=== PATIENT | female | born 1950 | race Two or more races ===

== ENCOUNTER 2023-12-10 13:05 | Inpatient (IN) | payer MEDICARE, OTHER ==
[~2023-12-10] VITALS: Ht 149.9 cm; Wt 63.0 kg
[2023-12-10] MEDS ORDERED: D5W/SOD CHL 0.45%/KCL 20MEQ 1,000 ML IV ONE (14:45)
[2023-12-10 15:13] LABS: Basophils # (auto) 0 10 ^3/uL (0-0.2); Basophils % (auto) 0.3 % (0.0-2.0); Eosinophils # (auto) 0 10 ^3/uL (0-0.8); Eosinophils % (auto) 0.1 % (0.0-7.0); Hematocrit 42.5 % (36.0-46.0); Hemoglobin 14.2 g/dL (12.2-16.2); Lymphocytes # (auto) 3.6 10 ^3/uL (0.4-5.4); Lymphocytes % (auto) 32.3 % (10.0-50.0); Mean Corpuscular Hemoglobin 30.3 pg (28.0-32.0); Mean Corpuscular Hgb Conc. 33.3 g/dL (32.0-36.0); Mean Corpuscular Volume 90.9 fL (80.0-100.0); Monocytes # (auto) 0.6 10 ^3/uL (0-1.3); Monocytes % (auto) 5.5 % (0.0-12.0); Neutrophils % (auto) 61.8 % (37.0-80.0); Nucleated Red Blood Cells % 0.2 %; Red Blood Cells 4.67 10^6/uL (4.0-5.20); Red Cell Distribution Width 13.8 % (11.8-14.3); White Blood Cell 11.3 10^3/uL (4.4-10.8)
[2023-12-10 15:30] LABS: Chloride 105 mmol/L (98-107); Potassium 3.5 mmol/L (3.5-5.1); Sodium 141 mmol/L (136-145)
[2023-12-10 15:31] LABS: Anion Gap 7 (5-15); Carbon Dioxide 29 mmol/L (20-30)
[2023-12-10 15:36] LABS: BUN/Creatinine Ratio 18.2 (10.0-20.0); Blood Urea Nitrogen 10 mg/dL (9-23); Glucose 87 mg/dL (74-106)
[2023-12-10] MEDS ORDERED: DONE1TAB88 PO (16:12)
[2023-12-10] MEDS ORDERED: PARO30TA99 (16:12)
[2023-12-10] MEDS ORDERED: MIRT1TAB39 PO (16:12)
[2023-12-10] MEDS ORDERED: CARB25TA77 (16:12)
[2023-12-10] MEDS ORDERED: LOSA50TA46 PO (16:12)
[2023-12-10] MEDS ORDERED: ATEN50TA PO (16:12)
[2023-12-10] MEDS ORDERED: ESCI1TAB37 PO (16:12)
[2023-12-10] MEDS ORDERED: VENL225T10 PO (16:12)
[2023-12-10] MEDS ORDERED: DEUT12TA PO (16:12)
[2023-12-10] MEDS ORDERED: BREX1TAB5 PO (16:12)
[2023-12-10] MEDS ORDERED: ACETAMINOPHEN 325 MG TAB PO PRN (16:15)
[2023-12-10] MEDS ORDERED: ONDANSETRON HCL 4 MG/2 ML VIAL IV PRN (16:15)
[2023-12-10] MEDS ORDERED: NITROGLYCERIN 0.4 MG SL TAB SL PRN (16:15)
[2023-12-10] MEDS ORDERED: DEXTROSE (50%) 50ML SYRG IV PRN (16:15)
[2023-12-10] MEDS ORDERED: MORPHINE SULFATE INJ 2 MG/ml SYRG IV PRN (16:15)
[2023-12-10] MEDS: InsuLIN REG 1unit/0.01ml Soln (100units/ml) SC SCH ×2 (20:21→22:00)
[2023-12-10] MEDS: ACCU-CHEK COMFORT CURVE STRIP VI SCH ×2 (20:21→22:15)
[2023-12-10 23:05] LABS: Urine Bacteria MANY /hpf (None Seen); Urine Blood Negative /uL (Negative); Urine Clarity HAZY (Clear); Urine Color Yellow (Yellow); Urine Hyaline Cast FEW /lpf (0 - 2); Urine Mucus FEW (None Seen); Urine Protein, UAD 1+ (Negative); Urine Specific Gravity 1.022 (1.001-1.035); Urine Urobilinogen Normal (Negative); Urine WBC 42 /hpf (0 - 5); Urine pH 5.5 (5.0-8.0)
[2023-12-11] VITALS (8 sets, daily range): BP systolic 124–147; BP diastolic 64–72; PULSE 73–83; RESP 16–20; TEMP 98–98.8; O2SAT 92–97
[2023-12-11] MEDS ORDERED: ATEN-60 PO (02:45)
[2023-12-11] MEDS ORDERED: PRAV20TA3 PO (02:45)
[2023-12-11] MEDS: SODIUM CHLORIDE 0.9% 1,000 ML IV SCH ×2 (02:59→08:55)
[2023-12-11] MEDS: ACCU-CHEK COMFORT CURVE STRIP VI SCH ×4 (06:15→21:12)
[2023-12-11] MEDS: InsuLIN REG 1unit/0.01ml Soln (100units/ml) SC SCH ×4 (06:15→21:17)
[2023-12-11 06:27] LABS: Basophils # (auto) 0 10 ^3/uL (0-0.2); Basophils % (auto) 0.3 % (0.0-2.0); Eosinophils # (auto) 0.1 10 ^3/uL (0-0.8); Eosinophils % (auto) 0.6 % (0.0-7.0); Hematocrit 40.2 % (36.0-46.0); Hemoglobin 13.3 g/dL (12.2-16.2); Lymphocytes # (auto) 5.8 10 ^3/uL (0.4-5.4); Lymphocytes % (auto) 50.6 % (10.0-50.0); Mean Corpuscular Hemoglobin 30.1 pg (28.0-32.0); Mean Corpuscular Volume 91.1 fL (80.0-100.0); Monocytes # (auto) 0.7 10 ^3/uL (0-1.3); Monocytes % (auto) 6.3 % (0.0-12.0); Neutrophils # (auto) 4.9 10 ^3/uL (1.6-8.6); Neutrophils % (auto) 42.2 % (37.0-80.0); Nucleated Red Blood Cells % 0.1 %; Red Blood Cells 4.41 10^6/uL (4.0-5.20); White Blood Cell 11.5 10^3/uL (4.4-10.8)
[2023-12-11 06:43] LABS: Alanine Aminotransferase 12 U/L (7-40); Albumin 4.2 g/dL (3.2-4.8); Alkaline Phosphatase 66 U/L (46-116); Anion Gap 7 (5-15); Aspartate Aminotransferase 32 U/L (13-40); BUN/Creatinine Ratio 30.6 (10.0-20.0); Bilirubin, Total 0.5 mg/dL (0.2-1.0); Blood Urea Nitrogen 15 mg/dL (9-23); Calcium 9.4 mg/dL (8.7-10.4); Carbon Dioxide 27 mmol/L (20-30); Chloride 105 mmol/L (98-107); Glucose 108 mg/dL (74-106); Potassium 3.4 mmol/L (3.5-5.1); Sodium 139 mmol/L (136-145)
[2023-12-11 06:44] LABS: Total Protein 6.2 g/dL (5.7-8.2)
[2023-12-11] MEDS ORDERED: ENOXAPARIN SOD 40 MG/0.4 ML SYRINGE SC SCH (10:00)
[2023-12-11] MEDS ORDERED: cefTRIAXone 1GM/50ML D5W 50 ML IV ONE (13:15)
[2023-12-11] MEDS: PRAVASTATIN SODIUM 20 MG TAB PO SCH (21:11)
[2023-12-11] MEDS: DONEPEZIL HYDROCHLORIDE 5 MG TAB PO SCH (21:12)
[2023-12-12] VITALS (9 sets, daily range): BP systolic 120–182; BP diastolic 57–77; PULSE 67–113; RESP 14–17; TEMP 98.1–98.7; O2SAT 92–95
[2023-12-12] MEDS: SODIUM CHLORIDE 0.9% 1,000 ML IV SCH (05:36)
[2023-12-12] MEDS: InsuLIN REG 1unit/0.01ml Soln (100units/ml) SC SCH ×4 (06:30→21:40)
[2023-12-12] MEDS: ACCU-CHEK COMFORT CURVE STRIP VI SCH ×4 (06:30→21:38)
[2023-12-12 06:53] LABS: Hematocrit 40.2 % (36.0-46.0); Hemoglobin 13.5 g/dL (12.2-16.2); Mean Corpuscular Hemoglobin 30.7 pg (28.0-32.0); Mean Corpuscular Hgb Conc. 33.5 g/dL (32.0-36.0); Mean Corpuscular Volume 91.4 fL (80.0-100.0); Red Cell Distribution Width 13.7 % (11.8-14.3); White Blood Cell 9.1 10^3/uL (4.4-10.8)
[2023-12-12 07:10] LABS: Band Neutrophils % (manual) 0; Basophils % (manual) 0 (0.0-2.0); Blast Cells 0; Eosinophils % (manual) 0 (0-7); Metamyelocytes % 0; Myelocytes % 0; Promyelocytes % 0; Reactive Lymphocytes 0
[2023-12-12 07:18] LABS: Alanine Aminotransferase 16 U/L (7-40); Albumin 4.3 g/dL (3.2-4.8); Alkaline Phosphatase 75 U/L (46-116); Anion Gap 7 (5-15); Aspartate Aminotransferase 31 U/L (13-40); BUN/Creatinine Ratio 16.9 (10.0-20.0); Blood Urea Nitrogen 11 mg/dL (9-23); Calcium 9.6 mg/dL (8.5-10.1); Carbon Dioxide 29 mmol/L (20-30); Chloride 105 mmol/L (98-107); Glucose 114 mg/dL (74-106); Potassium 3.7 mmol/L (3.5-5.1); Sodium 141 mmol/L (136-145)
[2023-12-12 07:19] LABS: Bilirubin, Total 0.6 mg/dL (0.2-1.0); Total Protein 6.3 g/dL (5.7-8.2)
[2023-12-12] MEDS: hydrALAZINE HCL 20 MG/ML VL IV PRN ×2 (09:22→16:22)
[2023-12-12] MEDS: CITALOPRAM HYDROBR 20 MG TAB PO SCH (09:22)
[2023-12-12] MEDS: cefTRIAXone 1GM/50ML D5W 50 ML IV SCH (09:23)
[2023-12-12 11:49] LABS: Lymphocytes % (manual) 67 (10.0-50.0); Monocytes % (manual) 3 (0-12)
[2023-12-12 11:50] LABS: Platelet Estimate Adequate
[2023-12-12] MEDS: PRAVASTATIN SODIUM 20 MG TAB PO SCH (21:38)
[2023-12-12] MEDS: DONEPEZIL HYDROCHLORIDE 5 MG TAB PO SCH (21:38)
[2023-12-13] VITALS (7 sets, daily range): BP systolic 122–157; BP diastolic 57–74; PULSE 71–91; RESP 16–18; TEMP 97.8–98.9; O2SAT 93–97
[2023-12-13 06:20] LABS: Basophils # (auto) 0 10 ^3/uL (0-0.2); Basophils % (auto) 0.5 % (0.0-2.0); Eosinophils # (auto) 0.1 10 ^3/uL (0-0.8); Eosinophils % (auto) 0.9 % (0.0-7.0); Hematocrit 38.9 % (36.0-46.0); Hemoglobin 13.1 g/dL (12.2-16.2); Lymphocytes # (auto) 3.6 10 ^3/uL (0.4-5.4); Lymphocytes % (auto) 39.4 % (10.0-50.0); Mean Corpuscular Hemoglobin 30.7 pg (28.0-32.0); Mean Corpuscular Hgb Conc. 33.7 g/dL (32.0-36.0); Mean Corpuscular Volume 91.1 fL (80.0-100.0); Monocytes # (auto) 0.7 10 ^3/uL (0-1.3); Monocytes % (auto) 8.1 % (0.0-12.0); Neutrophils # (auto) 4.7 10 ^3/uL (1.6-8.6); Neutrophils % (auto) 51.1 % (37.0-80.0); Nucleated Red Blood Cells % 0.1 %; Red Blood Cells 4.27 10^6/uL (4.0-5.20); Red Cell Distribution Width 13.9 % (11.8-14.3); White Blood Cell 9.2 10^3/uL (4.4-10.8)
[2023-12-13] MEDS: ACCU-CHEK COMFORT CURVE STRIP VI SCH ×4 (06:22→22:12)
[2023-12-13 06:24] LABS: Anion Gap 8 (5-15); Carbon Dioxide 26 mmol/L (20-30); Chloride 104 mmol/L (98-107); Potassium 3.5 mmol/L (3.5-5.1); Sodium 138 mmol/L (136-145)
[2023-12-13] MEDS: InsuLIN REG 1unit/0.01ml Soln (100units/ml) SC SCH ×4 (06:24→22:24)
[2023-12-13 06:26] LABS: Calcium 9.7 mg/dL (8.5-10.1)
[2023-12-13 06:31] LABS: Blood Urea Nitrogen 7 mg/dL (9-23); Glucose 146 mg/dL (74-106)
[2023-12-13 06:38] LABS: BUN/Creatinine Ratio 13.2 (10.0-20.0)
[2023-12-13] MEDS: CITALOPRAM HYDROBR 20 MG TAB PO SCH (09:39)
[2023-12-13] MEDS: cefTRIAXone 1GM/50ML D5W 50 ML IV SCH (09:40)
[2023-12-13] MEDS: PRAVASTATIN SODIUM 20 MG TAB PO SCH (22:07)
[2023-12-13] MEDS: DONEPEZIL HYDROCHLORIDE 5 MG TAB PO SCH (22:07)
[2023-12-14 05:00] VITALS: BP 149/71; PULSE 89; RESP 16; TEMP 98; O2SAT 98
[2023-12-14] MEDS: InsuLIN REG 1unit/0.01ml Soln (100units/ml) SC SCH ×2 (06:26→12:14)
[2023-12-14] MEDS: ACCU-CHEK COMFORT CURVE STRIP VI SCH ×2 (06:27→12:43)
[2023-12-14 08:00] VITALS: BP 134/67; PULSE 71; PULSE 82; RESP 16; TEMP 98.3; O2SAT 99
[2023-12-14 09:06] VITALS: BP 134/67; PULSE 82; RESP 16; TEMP 98.3; O2SAT 99
[2023-12-14] MEDS: CITALOPRAM HYDROBR 20 MG TAB PO SCH (10:13)
[2023-12-14] MEDS: cefTRIAXone 1GM/50ML D5W 50 ML IV SCH (10:13)
[2023-12-14 13:09] VITALS: BP 146/79; PULSE 87; RESP 18; TEMP 98.1; O2SAT 97
[2023-12-14 13:17] VITALS: BP 134/67; PULSE 82; RESP 16; TEMP 98.3; O2SAT 99
== END 2023-12-14 14:05 | disposition home health service (06) | DRG 871 ==
LOC: EDBD 13:05 → ER 13:05 → TELE 16:10 → TELE-WESTW 23:44
PROVIDERS: ADMIT Nurse Practitioner Family; ATTEND Internal Medicine
DX: A41.9 Sepsis, unspecified organism (principal); G93.41 Metabolic encephalopathy; N39.0 Urinary tract infection, site not specified; E11.649 Type 2 diabetes mellitus with hypoglycemia without coma; E87.6 Hypokalemia; I10 Essential (primary) hypertension; F02.80 Dementia in other diseases classified elsewhere, unspecified severity, without behavioral disturbance, psychotic disturbance, mood disturbance, and anxiety; G30.9 Alzheimer's disease, unspecified; E78.5 Hyperlipidemia, unspecified; G20.A1 Parkinson's disease without dyskinesia, without mention of fluctuations; F32.A Depression, unspecified; Z86.73 Personal history of transient ischemic attack (TIA), and cerebral infarction without residual deficits; Z88.5 Allergy status to narcotic agent
CPT/HCPCS: 36415; 71045; 80048; 80053; 81001; 82607; 82962; 83036; 84443; 85007; 85025; 85027; 87040; 87086; 93005; 93306; 97110; 97116; 97163; G0378; J1815